=== PATIENT | male | born 1970 | race Caucasian/White ===

== ENCOUNTER 2016-12-25 19:52 | Inpatient (IN) | payer MEDICAID ==
[~2016-12-25] VITALS: Ht 162.6 cm; Wt 119.4 kg
[~2016-12-25 19:52] MED LIST: ALPR0.25 PO; CEPH-443 PO; IBUP-1542 PO
[2016-12-25] MEDS ORDERED: SOD CHLORIDE 0.9% 1,000 ML IV STA (21:37)
[2016-12-25] MEDS ORDERED: ONDANSETRON 4 MG INJ IV STA (21:37)
[2016-12-25 21:53] LABS: BASOPHILS % 0.1 % (0.0-2.0); EOSINOPHILS # 0.1 10^3/ul (0.0-0.5); EOSINOPHILS % 0.4 % (0.0-7.0); HEMATOCRIT 48.4 % (42.0-52.0); LYMPHOCYTES # 1.2 10^3/ul (0.8-2.9); LYMPHOCYTES % 8.3 % (15.0-51.0); MEAN CORPUSCULAR HGB CONC 33.1 g/dl (32.0-37.0); MEAN CORPUSCULAR VOLUME 81.8 fl (82.0-101.0); MONOCYTE # 0.9 10^3/ul (0.3-0.9); MONOCYTES % 6.2 % (0.0-11.0); NEUTROPHILS % 84.5 % (39.0-77.0); PLATELET COUNT 273 10^3/UL (140-415); RED BLOOD COUNT 5.92 10^6/ul (4.70-6.10); WHITE BLOOD COUNT 14.7 10^3/ul (4.8-10.8)
[2016-12-25 22:02] LABS: CALCIUM 9.8 mg/dl (8.4-10.2); CREATININE 2.24 mg/dl (0.61-1.24); POTASSIUM 3.2 mmol/L (3.5-5.1)
[2016-12-25] MEDS ORDERED: ACETAMINOPHEN 500 MG TAB PO STA (22:06)
[2016-12-25] MEDS ORDERED: KETOROLAC 30 MG INJ IV STA (22:06)
[2016-12-25 22:14] LABS: TROPONIN-I 0.086 ng/ml (0.00-0.12)
--- NOTE | 2016-12-25 22:52 | RADRPT ---
PROCEDURE: Portable chest x-ray. CLINICAL INDICATION: 46-year of age, male. Syncope. TECHNIQUE: Portable AP view of the chest. COMPARISON: None available. FINDINGS: Cardiomediastinal contours are normal. Lungs are clear. Negative for pleural effusion or pneumothorax. No acute bony abnormality. IMPRESSION: Negative for evidence of acute chest process. RPTAT: HCTS Physician Talat Date Time Electronically viewed and signed by Jing Ventura Physician on 12/25/2016 22:52 CS/
[2016-12-25] MEDS ORDERED: LORAZEPAM 2 MG INJ IV ONE (23:30)
[2016-12-26] VITALS (14 sets, daily range): BP systolic 80–122; BP diastolic 45–74; PULSE 89–117; RESP 15–18; TEMP 100.3; Ht 162.6 cm; Wt 119.4 kg
--- NOTE | 2016-12-26 00:02 | ERA ---
ER Documentation Chief Complaint Date/Time DATE: 12/25/16 TIME: 23:54 Chief Complaint Dizziness and Not feeling good. Claimed Low BP with hx of Anxiety on Xanax HPI This is a 46-year-old male with a past medical history of hypertension and anxiety who is presenting with fever, chills, nausea, vomiting, diarrhea for 3 days along with lightheadedness, dizziness and presyncope today. The patient reports excellently doubling up on his blood pressure medicine over the last couple days, and thought that that might be why he was not feeling well. The patient denies any headache or vision changes. He denies any chest pain or trouble breathing. He denies a cough. He has not been around any sick contacts. The patient has not had any congestion. He denies any abdominal pain at this time. He has not had any focal deficits. He does not endorse any trouble with urination. ROS All systems reviewed and are negative except as per history of present illness. Medications Home Meds Active Scripts Ibuprofen* (Motrin*) 600 Mg Tab, 600 MG PO Q6H Y for PAIN AND OR ELEVATED TEMP, #30 TAB Prov:PEACE HINKLE NP 06/17/15 Cephalexin* (Keflex*) 500 Mg Capsule, 500 MG PO QID for 5 Days, CAP Prov:PEACE HINKLE [employer] 06/17/15 Reported Medications Alprazolam* (Xanax*) Unknown Strength Tablet, PO TID, TAB 06/17/15 Allergies Allergies: Coded Allergies: No Known Allergy (Unverified , 06/17/15) PMhx/Soc Medical and Surgical Hx: pt denies Surgical Hx History of Surgery: No Anesthesia Reaction: No Hx Neurological Disorder: No Hx Respiratory Disorders: No Hx Cardiac Disorders: Yes (HTN) Hx Psychiatric Problems: Yes (ANXIETY) Hx Miscellaneous Medical Probl: No Hx Alcohol Use: Yes (2-3 beers/ day) Hx Substance Use: Yes (meth heroin, 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 Neck: Full range of motion..~ No meningismus. Resp: Clear to auscultation bilaterally Cardio: Regular rate and rhythm, no murmurs Abd: Soft, non tender, non distended. Normal bowel sounds Skin: No petechiae or rashes Back: No midline or flank tenderness Ext: No cyanosis, or edema Neur: Awake and alert Psych: Normal Mood and Affect Result Diagram: 12/25/16204912/25/162049 Results 24 hrs Laboratory Tests Test 12/25/16 20:50 White Blood Count 14.710^3/ul Red Blood Count 5.9210^6/ul Hemoglobin 16.0g/dl Hematocrit 48.4% Mean Corpuscular Volume 81.8fl Mean Corpuscular Hemoglobin 27.0pg Mean Corpuscular Hemoglobin Concent 33.1g/dl Red Cell Distribution Width 14.0% Platelet Count 28579^3/UL Mean Platelet Volume 10.0fl Neutrophils % 84.5% Lymphocytes % 8.3% Monocytes % 6.2% Eosinophils % 0.4% Basophils % 0.1% Nucleated Red Blood Cells % 0.0/100WBC Neutrophils # (Manual) 12.410^3/ul Lymphocytes # 1.210^3/ul Monocytes # 0.910^3/ul Eosinophils # 0.110^3/ul Basophils # 0.010^3/ul Nucleated Red Blood Cells # 0.010^3/ul Sodium Level 132mmol/L Potassium Level 3.2mmol/L Chloride Level 84mmol/L Carbon Dioxide Level 28mmol/L Anion Gap 23 Blood Urea Nitrogen 37mg/dl Creatinine 2.24mg/dl Glucose Level 122mg/dl Calcium Level 9.8mg/dl Troponin I 0.086ng/ml Current Medications Medications (Trade) Dose Ordered Sig/Va Route PRN Reason Start Time Stop Time Status Last Admin Dose Admin Sodium Chloride (NS) 1,000 ml @ 1,000 mls/hr Q1H STAT IV 12/25/16 21:37 12/25/16 22:36 DC 12/25/16 21:43 Ondansetron HCl (Zofran Inj) 4 mg ONCE STAT IV 12/25/16 21:37 12/25/16 21:39 DC 12/25/16 21:43 Acetaminophen (Tylenol Tab) 1,000 mg ONCE STAT PO 12/25/16 22:06 12/25/16 22:09 DC 12/25/16 22:20 Ketorolac Tromethamine (Toradol) 30 mg ONCE STAT IV 12/25/16 22:06 12/25/16 22:09 DC 12/25/16 22:20 Lorazepam (Ativan) 0.5 mg ONCE ONCE IV 12/25/16 23:30 12/25/16 23:31 DC 12/25/16 23:13 Procedures/MDM The patient's presenting with signs concerning for an infection. The patient does endorse nausea, vomiting and diarrhea. There could be a gastrointestinal etiology. He initially arrived tachycardic and mildly hypotensive. He has been given IV fluids in the emergency department with significant improvement of both of these vital signs. He also had an elevated temperature as high as 103. He was given Tylenol and Toradol with resolution of this as well. Patient's blood work was obtained and reviewed. The patient has mild leukocytosis, which is concerning for an infection. The urinalysis and blood culture have been sent off. The patient's CMP demonstrated an elevated creatinine at 2.2. The patient does not endorse a history of kidney disease, and I am concerned of an acute kidney injury. The patient does have mild hypo- kalemia that does not need to be emergently treated. At this time, I do not have findings that are concerning for a bacterial etiology. This may be further evaluated by culture data in the hospital. The patient will be admitted to the hospital for further evaluation and management. Departure Diagnosis: Primary Impression: SIRS (systemic inflammatory response syndrome) Additional Impressions: Fever Qualified Code: R50.9 - Fever, unspecified fever cause Lightheadedness DIANE (acute kidney injury) MARIA LUISA FARMER MD Dec 26, 2016 00:02
[2016-12-26 00:20] LABS: ADD UMIC YES; UR ASCORBIC ACID NEGATIVE (NEGATIVE); UR BACTERIA FEW /HPF (NONE SEEN); UR BILIRUBIN (Dip) NEGATIVE (NEGATIVE); UR BLOOD (Dip) 1+ mg/dL (NEGATIVE); UR CLARITY CLEAR (CLEAR); UR COLOR STRAW (YELLOW); UR GLUCOSE (Dip) NEGATIVE (NEGATIVE); UR KETONES (Dip) NEGATIVE (NEGATIVE); UR LEUKOCYTE ESTERASE (Dip) 1+ Leu/ul (NEGATIVE); UR NITRITE (Dip) NEGATIVE (NEGATIVE); UR RBC 1 /HPF (0-5); UR SPECIFIC GRAVITY (Dip) 1.004 (1.003-1.030); UR TOTAL PROTEIN (Dip) NEGATIVE (NEGATIVE); UR UROBILINOGEN (Dip) NEGATIVE (NEGATIVE)
[2016-12-26] MEDS ORDERED: AZIL1TAB2 PO (01:12)
[2016-12-26] MEDS ORDERED: ONDANSETRON 4 MG INJ IV PRN ×2 (01:30)
[2016-12-26] MEDS ORDERED: LORAZEPAM 2 MG INJ IV PRN (01:30)
[2016-12-26] MEDS ORDERED: hydrALAzine 20 MG INJ IV PRN (01:30)
[2016-12-26] MEDS ORDERED: ACETAMINOPHEN 325 MG TAB PO PRN ×2 (01:30)
[2016-12-26] MEDS ORDERED: SOD CHLORIDE 0.9% 1,000 ML IV SCH (01:30)
[2016-12-26] MEDS ORDERED: POTASSIUM CHLORIDE 250 ML IVPB ONE (02:00)
[2016-12-26] MEDS: CEFTRIAXONE 1 GM/50 ML (PMX) 50 ML IVPB SCH (02:59)
[2016-12-26 03:31] LABS: ALBUMIN 4.1 g/dl (3.3-4.9); BILIRUBIN,INDIRECT 0.4 mg/dl (0-1.1); BILIRUBIN,TOTAL 0.4 mg/dl (0.2-1.3); MAGNESIUM 1.9 mg/dl (1.7-2.5); PHOSPHORUS 5.2 mg/dl (2.5-4.9); TOTAL PROTEIN 7.5 g/dl (6.1-8.1)
[2016-12-26 03:41] LABS: TROPONIN-I 0.1 ng/ml (0.00-0.12)
[2016-12-26 03:47] LABS: CK-MB 2.66 ng/ml (0.0-2.4)
[2016-12-26] MEDS ORDERED: METOPROLOL 25 MG TAB PO SCH (09:00)
[2016-12-26 09:29] LABS: TROPONIN-I 0.067 ng/ml (0.00-0.12)
[2016-12-26 09:32] LABS: CK-MB 1.52 ng/ml (0.0-2.4)
[2016-12-26 10:37] LABS: CALCIUM 8.4 mg/dl (8.4-10.2); CREATININE 1.72 mg/dl (0.61-1.24); POTASSIUM 3.8 mmol/L (3.5-5.1)
[2016-12-26 10:44] LABS: TROPONIN-I 0.07 ng/ml (0.00-0.12)
--- NOTE | 2016-12-26 10:50 | RADRPT ---
PROCEDURE: Renal US. CLINICAL INDICATION: Acute kidney injury. TECHNIQUE: Multiple sonographic images of the kidneys and urinary bladder were obtained. The imag es were reviewed on a PACS workstation. COMPARISON: No prior studies are available for comparison. FINDINGS: The right kidney measures 12.5 x 5.3 x 6.7 cm. The left kidney measures 12.8 x 6.2 x 5.8 cm. There is no solid renal mass. There are small benign right renal cysts with the largest measuring 1 .6 cm. There is no hydronephrosis. There is no right renal calculus. There is a 0.6 cm calculus in the upper to mid left kidney. Renal parenchymal thickness is normal bilaterally. Echogenicity is normal bilaterally. The perirenal regions are normal with no fluid collection or mass. The urinary bladder is unremarkable. IMPRESSION: 1. Benign right renal cysts with the largest measuring 1.6 cm. 2. Nonobstructing 0.6 cm calculus in the upper to mid left kidney. 3. Otherwise normal renal ultrasound. RPTAT: QQ .Dagoberto Kirkpatrick MD, Date Time Electronically viewed and signed by .Dagoberto Kirkpatrick MD, MD on 12/26/2016 10:49 .R/
[2016-12-26 10:56] LABS: CK-MB 0.93 ng/ml (0.0-2.4)
[2016-12-26 11:03] LABS: BENZODIAZEPINES Negative (NEGATIVE)
[2016-12-26 11:04] LABS: BARBITURATES Negative (NEGATIVE); CANNABINOIDS Negative (NEGATIVE); COCAINE Negative (NEGATIVE); OPIATES Negative (NEGATIVE)
--- NOTE | 2016-12-26 11:53 | HP ---
DATE OF ADMISSION: 12/25/2016 CHIEF COMPLAINT: Fever, chills, nausea and vomiting for the last 3 days. HISTORY OF PRESENT ILLNESS: A 46-year-old male with a past medical history of hypertension and heavy alcohol use who came to the emergency room because of fever. The patient also notes a history of anxiety and says he takes Xanax twice a day every day. He says he has also been having some diarrhea, denies chest pain, denies cough. Denies dysuria or hematuria. Denies multiple sexual partners, denies joint pain or swelling. Denies focal neurologic deficits. The patient was recently started on a drug for high blood pressure and the patient states he has been doubling up on it unknowingly. He also has a history of substance abuse including meth and heroin and that he quit last year. REVIEW OF SYSTEMS: A 12-point review of systems was reviewed and negative. PAST MEDICAL HISTORY: Hypertension and heavy alcohol use. PAST SURGICAL HISTORY: None. ALLERGIES: THE PATIENT HAS NO KNOWN DRUG ALLERGIES. FAMILY HISTORY: Positive for coronary artery disease in his father. MEDICATIONS: Include a drug called Edarbyclor which is a combination of an ANDREW as well as a thiazide diuretic, which he said he was taking twice a day. Two Xanax b.i.d. PHYSICAL EXAMINATION: VITAL SIGNS: Temperature maximum 103.1, heart rate ranges between 86 and 114, respirations between 16 and 27, blood pressure 93/52, saturation 96 percent on room air. GENERAL: The patient looks alert and oriented. In no distress currently. He is not overtly acutely ill-looking, is well built. HEENT: Head normocephalic. Pupils are equal, round, reactive. His mucous membranes are moist. Posterior pharynx clear of erythema or exudate. NECK: Supple. CHEST: Clear to auscultation with good air entry on both sides. CARDIOVASCULAR: Mild tachycardia without murmurs. ABDOMEN: Soft, nontender, nondistended. Normoactive bowel sounds. EXTREMITIES: Patient has no lower extremity edema. SKIN: Without rash or jaundice. LAB VALUES: He had diffusely abnormal labs with a potassium of 3.2, sodium of 132, chloride of 84 which were all low, and anion gap of 23, a BUN of 32, a creatinine of 2.2 which are all high. Lactic acid level was also elevated at 2.6. Hemoglobin A1c was normal. Creatine kinase ended up coming back at 974 consistent with a mild rhabdomyolysis and the CK-MB is also mildly elevated. Troponin even though is negative is trending in the upward direction. He has a leukocytosis of 14,000 with low MCV, MCH and neutrophil predominance. His EKG was nonischemic and a chest x- ray was negative for any acute abnormalities. ASSESSMENT: A 46-year-old male, who presents with flu-like symptoms including fever, chills, nausea, vomiting, managed for the followin. Sepsis. The patient may have a urinary tract infection from a urinalysis that showed 20 white blood cells and a few bacteria, but this is not overly suggestive and he has no symptoms. 2. Acute kidney injury, likely secondary to medication overuse. Baseline creatinine not known. 3. Lactic acidosis secondary to number 1. 4. Mild rhabdomyolysis. 5. Elevated creatine kinase, likely secondary to rhabdomyolysis. 6. Electrolyte abnormalities with hypokalemia and hyponatremia, likely secondary to heavy alcohol use. 7. Heavy alcohol use. 8. Recent heavy tobacco and substance abuse which the patient has now quit by report. PLAN: At this time the patient is admitted to the telemetry floor for close monitoring and management, the main thing is to send for blood cultures and urine cultures and try to figure out where the infection source is. In the meantime will closely monitor his renal function, I will also throw in a renal ultrasound and see if we can figure out why his renal function is elevated even though this could be secondary to sepsis as well. I will provide supportive care with diuretics and pain medication. Further interventions will depend on his clinical course. This plan of care has been reviewed with him. He has been counseled for more than 3 minutes on the need to quit alcohol use and he should continue to stay away from tobacco as well as illicit drugs. Social service consult to be obtained to assist in providing resources. PROPHYLAXIS: He will be on SCDs. Dictated By: Jah Angel MD /[email or web address]/kanu /Document#: [id number]
--- NOTE | 2016-12-26 13:45 | PN ---
Date/Time of Note Date/Time of Note DATE: 12/26/16 TIME: 13:44 Assessment/Plan VTE Prophylaxis VTE Prophylaxis Intervention: SCD's Lines/Catheters IV Catheter Type (from Nrs): Peripheral IV Assessment/Plan Assessment/Plan 46 yo M presented with fevers, tachycardia, leukocytosis consistent with SIRS. No clear infectious source has yet been identified. Consider viral etio? Labs also notable for rhabdomyolysis. PLAN cont empiric abx, cultures in process increase IVFs DVT prophx Subjective 24 Hr Interval Summary Free Text/Dictation Pt sleeping this afternoon Exam/Review of Systems Vital Signs Vitals Vital Signs Date Time Temp Pulse Resp B/P Pulse Ox O2 Delivery O2 Flow Rate FiO2 12/26/16 12:50 99.0 90 18 100/49 98 12/26/16 00:34 Room Air Intake and Output 12/25/16 12/25/16 12/26/16 15:00 23:00 07:00 Intake Total 310.5 ml Balance 310.5 ml Exam sleeping no gross abd distension resp unlabored no rashes no edema labs reviewed, CK a little high Results Result Diagram: 12/25/16204912/26/16 0950 Results 24 hrs Laboratory Tests Test 12/25/16 20:50 12/25/16 23:00 12/26/16 02:20 12/26/16 06:00 White Blood Count 14.7 H Red Blood Count 5.92 Hemoglobin 16.0 Hematocrit 48.4 Mean Corpuscular Volume 81.8 L Mean Corpuscular Hemoglobin 27.0 L Mean Corpuscular Hemoglobin Concent 33.1 Red Cell Distribution Width 14.0 Platelet Count 273 Mean Platelet Volume 10.0 Neutrophils % 84.5 H Lymphocytes % 8.3 L Monocytes % 6.2 Eosinophils % 0.4 Basophils % 0.1 Nucleated Red Blood Cells % 0.0 Neutrophils # (Manual) 12.4 H Lymphocytes # 1.2 Monocytes # 0.9 Eosinophils # 0.1 Basophils # 0.0 Nucleated Red Blood Cells # 0.0 Sodium Level 132 L Potassium Level 3.2 L Chloride Level 84 L Carbon Dioxide Level 28 Anion Gap 23 H Blood Urea Nitrogen 37 H Creatinine 2.24 H Glucose Level 122 Calcium Level 9.8 Troponin I 0.086 0.100 Urine Color STRAW Urine Clarity CLEAR Urine pH 6.0 Urine Specific [place] 1.004 Urine Ketones NEGATIVE Urine Nitrite NEGATIVE Urine Bilirubin NEGATIVE Urine Urobilinogen NEGATIVE Urine Leukocyte Esterase 1+ H Urine Microscopic RBC 1 Urine Microscopic WBC 20 H Urine Bacteria FEW A Urine Hemoglobin 1+ H Urine Glucose NEGATIVE Urine Total Protein NEGATIVE Hemoglobin A1c 5.9 Lactic Acid Level 2.6 *H Phosphorus Level 5.2 H Magnesium Level 1.9 Total Bilirubin 0.4 Direct Bilirubin 0.00 Indirect Bilirubin 0.4 Aspartate Amino Transf (AST/SGOT) 41 Alanine Aminotransferase (ALT/SGPT) 40 Alkaline Phosphatase 59 Creatine Kinase 974 H Creatine Kinase Index 0.3 Creatinine Kinase MB (Mass) 2.66 H Total Protein 7.5 Albumin 4.1 Lipase 70 Urine Opiates Screen Negative Urine Barbiturates Negative Urine Amphetamines Screen Negative Urine Benzodiazepines Screen Negative Urine Cocaine Screen Negative Urine Cannabinoids Negative Test 12/26/16 06:50 12/26/16 09:50 Creatine Kinase 780 H 680 H Creatine Kinase Index 0.2 0.1 Creatinine Kinase MB (Mass) 1.52 0.93 Troponin I 0.067 0.070 Sodium Level 134 L Potassium Level 3.8 Chloride Level 95 #L Carbon Dioxide Level 24 Anion Gap 19 H Blood Urea Nitrogen 30 H Creatinine 1.72 H Glucose Level 112 Lactic Acid Level 1.5 Calcium Level 8.4 Medications Medications Current Medications Sodium Chloride 1,000 ml @ 125 mls/hr Q8H IV Last administered on 12/26/16 02 :25; Admin Dose 125 MLS/HR; Start 12/26/16 at 01:30 Ceftriaxone Sodium (Rocephin) 50 ml @ 100 mls/hr Q24H IVPB Last administered on 12/26/16 02:59; Admin Dose 100 MLS/HR; Start 12/26/16 at 01:30 Metoprolol Tartrate (Lopressor) 25 mg BID PO Last administered on 12/26/16 09: 50; Admin Dose 25 MG; Start 12/26/16 at 09:00 Ondansetron HCl (Zofran Inj) 4 mg Q6H PRN IV NAUSEA AND/OR VOMITING Last administered on 12/26/16 08:32; Admin Dose 4 MG; Start 12/26/16 at 01:30 Lorazepam (Ativan) 1 mg Q6H PRN IV anxiety; Start 12/26/16 at 01:30 SWAPNA WALLER MD Dec 26, 2016 13:45
[2016-12-26] MEDS ORDERED: SOD CHLORIDE 0.9% 1,000 ML IV ONE (15:30)
[2016-12-26] MEDS: SOD CHLORIDE 0.9% 1,000 ML IV SCH ×2 (18:54→23:30)
[2016-12-26] MEDS: ACETAMINOPHEN 325 MG TAB PO PRN (21:12)
[2016-12-27] VITALS (12 sets, daily range): BP systolic 89–130; BP diastolic 42–70; PULSE 74–108; RESP 16–20
[2016-12-27] MEDS: CEFTRIAXONE 1 GM/50 ML (PMX) 50 ML IVPB SCH (01:53)
[2016-12-27] MEDS: SOD CHLORIDE 0.9% 1,000 ML IV SCH ×4 (01:54→21:31)
[2016-12-27] MEDS: ACETAMINOPHEN 325 MG TAB PO PRN ×3 (04:15→20:53)
[2016-12-27 07:31] LABS: BASOPHILS % 0.1 % (0.0-2.0); HEMATOCRIT 39.9 % (42.0-52.0); HEMOGLOBIN 12.9 g/dl (14.0-18.0); LYMPHOCYTES # 1.2 10^3/ul (0.8-2.9); LYMPHOCYTES % 7.5 % (15.0-51.0); MEAN CORPUSCULAR HEMOGLOBIN 26.8 pg (29.0-33.0); MEAN CORPUSCULAR HGB CONC 32.3 g/dl (32.0-37.0); MEAN CORPUSCULAR VOLUME 82.8 fl (82.0-101.0); MEAN PLATELET VOLUME 10.2 fl (7.4-10.4); MONOCYTE # 1.4 10^3/ul (0.3-0.9); MONOCYTES % 8.6 % (0.0-11.0); NEUTROPHILS % 83.2 % (39.0-77.0); PLATELET COUNT 180 10^3/UL (140-415); POSITIVE DIFF @See below; RED BLOOD COUNT 4.82 10^6/ul (4.70-6.10); RED CELL DISTRIBUTION WIDTH 14.6 % (11.5-14.5); WHITE BLOOD COUNT 15.9 10^3/ul (4.8-10.8)
[2016-12-27 07:54] LABS: CALCIUM 8.4 mg/dl (8.4-10.2); CREATININE 1.39 mg/dl (0.61-1.24); POTASSIUM 3.9 mmol/L (3.5-5.1)
--- NOTE | 2016-12-27 10:08 | PN ---
Date/Time of Note Date/Time of Note DATE: 12/27/16 TIME: 10:08 Assessment/Plan VTE Prophylaxis VTE Prophylaxis Intervention: SCD's Lines/Catheters IV [facility] Type (from [facility]): Peripheral IV Assessment/Plan Chief Complaint/Hosp Course 1.Systemic inflammatory response syndrome vs possible Sepsis? -Continue current antibiotics. -Follow-up final cultures and C. difficile studies. 2.Diarrhea. Rule out C. difficile.Improving. -Follow-up pending C. difficile studies. 3.Rhabdomyolysis likely secondary to EtOH. Improving. 4.Lactic acidosis, likely EtOH induced versus actual infection. Resolved 5.Acute kidney injury, likely hemodynamics/ARB/substance-induced .Renal function Stabilizing.Renal ultrasound with normal echogenicity bilaterally. -Avoid nephrotoxins and monitor renal function closely. 6.Hyponatremia,Likely Thiazide induced. Resolved 7. History of Hypertension. -Home medications (ARB/Thiazide) were discontinued as patient came in with DIANE. -Monitor blood pressure closely as it appears borderline low. Will consider switching to another antihypertensive if indicated. 8. EtOH abuse. -Cessation advised. Plan: Continue current medical management. Follow-up with C. difficile studies. Monitor renal function closely. Case discussed with . Problems: Subjective 24 Hr Interval Summary Free Text/Dictation Patient with complaining of diarrhea. Having mild low-grade fevers. Exam/Review of Systems Vital Signs Vitals Vital Signs Date Time Temp Pulse Resp B/P Pulse Ox O2 Delivery O2 Flow Rate FiO2 12/27/16 08:36 74 12/27/16 08:01 98.6 18 130/70 100 12/26/16 00:34 Room Air Intake and Output 12/26/16 12/26/16 12/27/16 15:00 23:00 07:00 Intake Total 462.5 ml 3300 ml 1537 ml Output Total 1200 ml 4750 ml 2900 ml Balance -737.5 ml -1450 ml -1363 ml Exam General: Well developed,adequately built, not in any acute distress . HEENT: Normocephalic, Atraumatic, No laceration or hematoma; Eyes: PEERL, Conjunctiva clear, Anicteric sclera Neck: Supple without any lymphadenopathy, nontender, no JVD, no carotid bruits, trachea midline, no thyromegaly Cardiac: S1, S2 auscultated, regular rhythm and rate, no mumurs or gallop Pulmonary: Normal respiratory effort. Chest clear to auscultation bilaterally, no adventitious breath sounds GI: Abdomen normal to inspection. Soft, non tender, non- distended, no masses, no rebound tenderness or guarding. Bowel sounds active on all four quadrants Genitourinary: Deferred Extremities: No cyanosis, clubbing, or edema. Pulses [2+] bilaterally. Full ROM on all four extremities. No focal weakness appreciated. Neurologic: Alert to person, place, time, and situation. Affect appropriate, intact sensation. Skin: Clean,dry, and intact. No ecchymosis, no rashes, or lesions Results Result Diagram: 12/27/16 0659 12/27/16 0659 Results 24 hrs Laboratory Tests Test 12/27/16 06:59 White Blood Count 15.9 H Red Blood Count 4.82 Hemoglobin 12.9 L Hematocrit 39.9 L Mean Corpuscular Volume 82.8 Mean Corpuscular Hemoglobin 26.8 L Mean Corpuscular Hemoglobin Concent 32.3 Red Cell Distribution Width 14.6 H Platelet Count 180 # Mean Platelet Volume 10.2 Neutrophils % 83.2 H Lymphocytes % 7.5 L Monocytes % 8.6 Eosinophils % 0.0 Basophils % 0.1 Nucleated Red Blood Cells % 0.0 Neutrophils # (Manual) 13.2 H Lymphocytes # 1.2 Monocytes # 1.4 H Eosinophils # 0.0 Basophils # 0.0 Nucleated Red Blood Cells # 0.0 Sodium Level 140 Potassium Level 3.9 Chloride Level 98 Carbon Dioxide Level 27 Anion Gap 19 H Blood Urea Nitrogen 19 # Creatinine 1.39 H Glucose Level 110 Calcium Level 8.4 Creatine Kinase 313 #H Medications Medications Current Medications Ceftriaxone Sodium (Rocephin) 50 ml @ 100 mls/hr Q24H IVPB Last administered on 12/27/16 01:53; Admin Dose 100 MLS/HR; Start 12/26/16 at 01:30 Ondansetron HCl 4 mg 4 mg Q6H PRN IV NAUSEA AND/OR VOMITING Last administered on 12/26/16 08:32; Admin Dose 4 MG; Start 12/26/16 at 01:30 Sodium Chloride (NS) 1,000 ml @ 125 mls/hr Q8H IV Last administered on 01:54; Admin Dose 125 MLS/HR; Start 12/26/16 at 15:30 Acetaminophen (Tylenol Tab) 650 mg Q6H PRN PO PAIN AND OR ELEVATED TEMP Last administered on 12/27/16 04:15; Admin Dose 650 MG; Start 12/26/16 at 20:00 ROSCOE LEMUS NP Dec 27, 2016 10:08
[2016-12-27] MEDS: metroNIDAZOLE 500 MG TAB PO SCH ×2 (15:31→21:30)
[2016-12-28] VITALS (12 sets, daily range): BP systolic 87–110; BP diastolic 48–69; PULSE 72–105; RESP 18–21
[2016-12-28] MEDS: CEFTRIAXONE 1 GM/50 ML (PMX) 50 ML IVPB SCH (01:28)
[2016-12-28] MEDS: ACETAMINOPHEN 325 MG TAB PO PRN ×3 (06:28→23:37)
[2016-12-28] MEDS: metroNIDAZOLE 500 MG TAB PO SCH ×3 (06:28→23:35)
[2016-12-28] MEDS: SOD CHLORIDE 0.9% 1,000 ML IV SCH ×3 (06:28→17:01)
[2016-12-28 07:40] LABS: ABNORMAL IP MESSAGE 1; BASOPHILS % 0.3 % (0.0-2.0); EOSINOPHILS % 0.3 % (0.0-7.0); HEMATOCRIT 38.5 % (42.0-52.0); HEMOGLOBIN 12.5 g/dl (14.0-18.0); LYMPHOCYTES # 1.5 10^3/ul (0.8-2.9); LYMPHOCYTES % 12.6 % (15.0-51.0); MEAN CORPUSCULAR HEMOGLOBIN 26.8 pg (29.0-33.0); MEAN CORPUSCULAR HGB CONC 32.5 g/dl (32.0-37.0); MEAN CORPUSCULAR VOLUME 82.6 fl (82.0-101.0); MEAN PLATELET VOLUME 10.2 fl (7.4-10.4); MONOCYTE # 1.5 10^3/ul (0.3-0.9); MONOCYTES % 13.2 % (0.0-11.0); NEUTROPHILS % 73.1 % (39.0-77.0); PLATELET COUNT 192 10^3/UL (140-415); POSITIVE DIFF @See below; RED BLOOD COUNT 4.66 10^6/ul (4.70-6.10); RED CELL DISTRIBUTION WIDTH 14.2 % (11.5-14.5); WHITE BLOOD COUNT 11.5 10^3/ul (4.8-10.8)
[2016-12-28 08:04] LABS: CALCIUM 8.6 mg/dl (8.4-10.2); CREATININE 1.11 mg/dl (0.61-1.24); POTASSIUM 3.3 mmol/L (3.5-5.1)
--- NOTE | 2016-12-28 11:18 | PN ---
Date/Time of Note Date/Time of Note DATE: 12/28/16 TIME: 11:18 Assessment/Plan VTE Prophylaxis VTE Prophylaxis Intervention: SCD's Lines/Catheters IV Catheter Type (from Nrs): Peripheral IV Assessment/Plan Chief Complaint/Hosp Course 1.Sepsis 2/2 UTI, C-diff diarrhea. Resolving. -Continue current antibiotics. -Follow-up final cultures and C. difficile studies. 2.C-diff Diarrhea. .Improving. -On Flagyl 3.Gram negative UTI. -Continue abx.F/u final CS. 4.Rhabdomyolysis likely secondary to EtOH. Improved. 5.Lactic acidosis, likely EtOH induced versus actual infection. Resolved 6.Acute kidney injury, likely hemodynamics/ARB/substance-induced .Renal ultrasound with normal echogenicity bilaterally. Resolved. -Avoid nephrotoxins and monitor renal function closely. 7.Hyponatremia,Likely Thiazide induced. Resolved 8. History of Hypertension. -Home medications (ARB/Thiazide) were discontinued as patient came in with DIANE. -Monitor blood pressure closely as it appears borderline low. Will consider switching to another antihypertensive if indicated. 9. EtOH abuse. -Cessation advised. 10.Hypokalemia. Replete and monitor. Plan: Overall with improvement. Transfer to med-surg level of care. Continue current medical management. Follow-up with final UCS. If no further fevers,DC planning in AM on abx. Case discussed with . Problems: Subjective 24 Hr Interval Summary Free Text/Dictation No further fevers overnight. Denies dysuria. Having lower abdominal pain-mild. Exam/Review of Systems Vital Signs Vitals Vital Signs Date Time Temp Pulse Resp B/P Pulse Ox O2 Delivery O2 Flow Rate FiO2 12/28/16 08:50 99.4 72 18 91/50 95 Room Air Intake and Output 12/27/16 12/27/16 12/28/16 15:00 23:00 07:00 Intake Total 563 ml 1500 ml 2000 ml Output Total 950 ml 1600 ml 2400 ml Balance -387 ml -100 ml -400 ml Exam General: Well developed,adequately built, not in any acute distress . HEENT: Normocephalic, Atraumatic, No laceration or hematoma; Eyes: PEERL, Conjunctiva clear, Anicteric sclera Neck: Supple without any lymphadenopathy, nontender, no JVD, no carotid bruits, trachea midline, no thyromegaly Cardiac: S1, S2 auscultated, regular rhythm and rate, no mumurs or gallop Pulmonary: Normal respiratory effort. Chest clear to auscultation bilaterally, no adventitious breath sounds GI: Mild tenderness to suprapubic area. No dysuria or hematuria. Abdomen normal to inspection. Soft, non tender, non- distended, no masses, no rebound tenderness or guarding. Bowel sounds active on all four quadrants Genitourinary: Deferred Extremities: No cyanosis, clubbing, or edema. Pulses [2+] bilaterally. Full ROM on all four extremities. No focal weakness appreciated. Neurologic: Alert to person, place, time, and situation. Affect appropriate, intact sensation. Skin: Clean,dry, and intact. No ecchymosis, no rashes, or lesions Results Result Diagram: 12/28/16 0659 12/28/16 0659 Results 24 hrs Laboratory Tests Test 12/28/16 06:59 White Blood Count 11.5 #H Red Blood Count 4.66 L Hemoglobin 12.5 L Hematocrit 38.5 L Mean Corpuscular Volume 82.6 Mean Corpuscular Hemoglobin 26.8 L Mean Corpuscular Hemoglobin Concent 32.5 Red Cell Distribution Width 14.2 Platelet Count 192 Mean Platelet Volume 10.2 Neutrophils % 73.1 Lymphocytes % 12.6 L Monocytes % 13.2 H Eosinophils % 0.3 Basophils % 0.3 Nucleated Red Blood Cells % 0.0 Neutrophils # (Manual) 8.4 H Lymphocytes # 1.5 Monocytes # 1.5 H Eosinophils # 0.0 Basophils # 0.0 Nucleated Red Blood Cells # 0.0 Sodium Level 137 Potassium Level 3.3 L Chloride Level 95 L Carbon Dioxide Level 26 Anion Gap 19 H Blood Urea Nitrogen 12 Creatinine 1.11 Glucose Level 113 Calcium Level 8.6 Medications Medications Current Medications Ceftriaxone Sodium (Rocephin) 50 ml @ 100 mls/hr Q24H IVPB Last administered on 12/28/16 01:28; Admin Dose 100 MLS/HR; Start 12/26/16 at 01:30 Ondansetron HCl 4 mg 4 mg Q6H PRN IV NAUSEA AND/OR VOMITING Last administered on 12/26/16 08:32; Admin Dose 4 MG; Start 12/26/16 at 01:30 Sodium Chloride (NS) 1,000 ml @ 125 mls/hr Q8H IV Last administered on 06:28; Admin Dose 125 MLS/HR; Start 12/26/16 at 15:30 Acetaminophen (Tylenol Tab) 650 mg Q6H PRN PO PAIN AND OR ELEVATED TEMP Last administered on 12/28/16 06:28; Admin Dose 650 MG; Start 12/26/16 at 20:00 Metronidazole (Flagyl) 500 mg Q8 PO Last administered on 12/28/16 06:28; Admin Dose 500 MG; Start 12/27/16 at 15:00 ROSCOE LEMUS NP Dec 28, 2016 11:18
[2016-12-28] MEDS ORDERED: POTASSIUM CHLORIDE (SR) 20 MEQ TAB PO STA (11:49)
[2016-12-29] MEDS: CEFTRIAXONE 1 GM/50 ML (PMX) 50 ML IVPB SCH (00:37)
[2016-12-29 02:16] VITALS: BP 108/65; RESP 17
[2016-12-29] MEDS: SOD CHLORIDE 0.9% 1,000 ML IV SCH (03:35)
[2016-12-29] MEDS: metroNIDAZOLE 500 MG TAB PO SCH ×2 (05:08→13:26)
[2016-12-29 05:45] LABS: ABNORMAL IP MESSAGE 1; BASOPHILS % 0.4 % (0.0-2.0); EOSINOPHILS # 0.1 10^3/ul (0.0-0.5); EOSINOPHILS % 1.2 % (0.0-7.0); HEMATOCRIT 41.5 % (42.0-52.0); HEMOGLOBIN 13.1 g/dl (14.0-18.0); LYMPHOCYTES % 20.2 % (15.0-51.0); MEAN CORPUSCULAR HEMOGLOBIN 26.6 pg (29.0-33.0); MEAN CORPUSCULAR HGB CONC 31.6 g/dl (32.0-37.0); MEAN CORPUSCULAR VOLUME 84.3 fl (82.0-101.0); MEAN PLATELET VOLUME 10.2 fl (7.4-10.4); MONOCYTE # 1.7 10^3/ul (0.3-0.9); MONOCYTES % 17.4 % (0.0-11.0); NEUTROPHILS % 60.1 % (39.0-77.0); PLATELET COUNT 237 10^3/UL (140-415); POSITIVE DIFF @See below; RED BLOOD COUNT 4.92 10^6/ul (4.70-6.10); RED CELL DISTRIBUTION WIDTH 14.7 % (11.5-14.5); WHITE BLOOD COUNT 9.8 10^3/ul (4.8-10.8)
[2016-12-29 06:34] LABS: CALCIUM 9.2 mg/dl (8.4-10.2); CREATININE 1.13 mg/dl (0.61-1.24); POTASSIUM 4.1 mmol/L (3.5-5.1)
[2016-12-29 08:00] VITALS: BP 109/62; RESP 18
[2016-12-29] MEDS: ACETAMINOPHEN 325 MG TAB PO PRN (08:52)
--- NOTE | 2016-12-29 12:50 | PDOCDIS ---
Discharge Instructions CONDITION Patient Condition: Stable HOME CARE INSTRUCTIONS: Special Diet: low fat low choles FOLLOW UP/APPOINTMENTS Follow-up Plan 1.Follow up with primary care physician in 1 week If you don't have one please let someone know, we can give you resources that may help you pick one. You may also call your insurance company to assign one to you. Review your medication list with your nurse before leaving and if you need new prescriptions please let your nurse know. I may have made changes to your home medications or given you new prescriptions, please let your primary doctor know as well. Stay compliant with your medications and report any side effects to your PCP or pharmacist. Return to the ER if you have any concerns and cannot reach your doctors or call your insurance company, they usually have a nurse that can help you. 2. Call 911 or go to the nearest emergency room if experiencing loss of consciousness, dizziness, chest pain, shortness of breath, vomiting/abdominal pain, speech difficulties, motor weakness or any unusual symptoms. OTHER ORDERS: Other Orders: Do not share personal items including utensils, soap, towels and other personal abilities. Hand wash with soap and water for 15 minutes. ROSCOE LEMUS NP Dec 29, 2016 12:50
[2016-12-29] MEDS ORDERED: METR500T PO (12:52)
[2016-12-29] MEDS ORDERED: CIPR500T4 PO (12:52)
[2016-12-29 14:00] VITALS: BP 118/64; RESP 20
--- NOTE | 2016-12-29 15:44 | DS ---
Date/Time of Note Date/Time of Note DATE: 12/29/16 TIME: 15:41 Discharge Summary Admission/Discharge Info Admit Date/Time Dec 25, 2016 at 23:54 Discharge Date/Time Discharge Diagnosis 1. Status post sepsis 2/2 UTI, C-diff diarrhea. 2. C-diff Diarrhea. Resolving 3.Gram negative bacteremia UTI. 4.Rhabdomyolysis likely secondary to EtOH. Improved. 5.Lactic acidosis, likely EtOH induced versus actual infection. Resolved 6.Acute kidney injury, likely hemodynamics/ARB/substance-induced .. Resolved. 7.Hyponatremia,Likely Thiazide induced. Resolved 8. History of Hypertension. Now off treatment. 9. EtOH abuse. 10.Hypokalemia 2/2 diarrhea. Resolved. Patient Condition: Stable Procedures 2016. Renal ultrasound. IMPRESSION: 1. Benign right renal cysts with the largest measuring 1.6 cm. 2. Nonobstructing 0.6 cm calculus in the upper to mid left kidney. 3. Otherwise normal renal ultrasound. Hospital Course This is a 46-year-old male with a past medical history hypertension, alcohol abuse, who presented to the emergency room with complaints of fever. 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 His initial labs with lactic acid 2.6, BUN 32, creatinine 2.2, sodium 132, anion gap 23 and potassium 3.2. Patient also had elevated WBC 14,000. Patient was treated with sepsis protocol and was admitted. He was continued on antibiotics. Patient also noted with acute kidney injury with rhabdomyolysis. Renal ultrasound was not impressive for chronic kidney disease. His blood pressure medications were discontinued as he did not require them and also he had DIANE. Urine culture was positive for Enterobacter aerogenes. He was continued on appropriate antibiotic regimen. Patient also had positive C. difficile. He was started on Flagyl. His diarrhea started to improve. Patient is able to tolerate diet and activities well. Leukocytosis resolved. Sepsis resolved. Patient also was noted with rhabdomyolysis secondary to EtOH abuse which was also improved. Lactic acidosis resolved. Renal function stabilized to baseline. Hyponatremia and hypokalemia also resolved. Patient did not require any further medication for hypertension as his blood pressure remained stable without any intervention. Patient was not recommended to continue his home antihypertensives as they are also kidney toxic. At this time, patient does not need any antihypertensive and can be followed up with primary care provider for evaluation. Patient is feeling back to his baseline. His labs and vital signs remained unremarkable. Patient is medically stable for discharge. Disposition: Patient will be discharged home today with primary care follow-up. He was instructed on prevention of C. difficile infection and precaution. Patient verbalized discharge instructions. Patient was recommended to continue Flagyl and Cipro for another 10 days. Possibility 60 minutes was spent in coordinating the discharge on this patient. Case discussed with [place] Meds Active Scripts Ciprofloxacin Hcl* (Ciprofloxacin Hcl*) 500 Mg Tablet, 500 MG PO BID, #20 TAB Prov:LEMUSROMANAROSCOE V. [employer] M[employer] TECHNICIAN 12/29/16 Metronidazole* (Flagyl*) 500 Mg Tablet, 500 MG PO Q8, #30 TAB Prov:LEMUS,ROSCOE V. [employer] M[employer] TECHNICIAN 12/29/16 Ibuprofen* (Motrin*) 600 Mg Tab, 600 MG PO Q6H Y for PAIN AND OR ELEVATED TEMP, #30 TAB Prov:PEACE HINKLE [employer]AD [employer] M[employer] TECHNICIAN 06/17/15 Reported Medications Alprazolam* (Xanax*) Unknown Strength Tablet, 0.5 MG PO BID Y for ANXIETY, TAB 06/17/15 Discontinued Reported Medications Azilsartan-Chlorthalidone (Edarbyclor) 40-25 Mg Tablet, 1 TAB PO DAILY, TAB 12/26/16 Follow-up Plan HOME CARE INSTRUCTIONS: Special Diet: low fat low choles FOLLOW UP/APPOINTMENTS Follow-up Plan 1.Follow up with primary care physician in 1 week If you don't have one please let someone know, we can give you resources that may help you pick one. You may also call your insurance company to assign one to you. Review your medication list with your nurse before leaving and if you need new prescriptions please let your nurse know. I may have made changes to your home medications or given you new prescriptions, please let your primary doctor know as well. Stay compliant with your medications and report any side effects to your PCP or pharmacist. Return to the ER if you have any concerns and cannot reach your doctors or call your insurance company, they usually have a nurse that can help you. 2. Call 911 or go to the nearest emergency room if experiencing loss of consciousness, dizziness, chest pain, shortness of breath, vomiting/abdominal pain, speech difficulties, motor weakness or any unusual symptoms. OTHER ORDERS: Other Orders: Do not share personal items including utensils, soap, towels and other personal abilities. Hand wash with soap and water for 15 minutes. Primary Care Provider Not On Staff Doctor Pending Labs Laboratory Tests Test 12/29/16 04:39 White Blood Count 9.810^3/ul (4.8-10.8) Red Blood Count 4.9210^6/ul (4.70-6.10) Hemoglobin 13.1g/dl (14.0-18.0) Hematocrit 41.5% (42.0-52.0) Mean Corpuscular Volume 84.3fl (82.0-101.0) Mean Corpuscular Hemoglobin 26.6pg (29.0-33.0) Mean Corpuscular Hemoglobin Concent 31.6g/dl (32.0-37.0) Red Cell Distribution Width 14.7% (11.5-14.5) Platelet Count 90405^3/UL (140-415) Mean Platelet Volume 10.2fl (7.4-10.4) Neutrophils % 60.1% (39.0-77.0) Lymphocytes % 20.2% (15.0-51.0) Monocytes % 17.4% (0.0-11.0) Eosinophils % 1.2% (0.0-7.0) Basophils % 0.4% (0.0-2.0) Nucleated Red Blood Cells % 0.0/100WBC (0.0-0.0) Neutrophils # (Manual) 5.910^3/ul (1.7-7.5) Lymphocytes # 2.010^3/ul (0.8-2.9) Monocytes # 1.710^3/ul (0.3-0.9) Eosinophils # 0.110^3/ul (0.0-0.5) Basophils # 0.010^3/ul (0.0-0.1) Nucleated Red Blood Cells # 0.010^3/ul (0.0-0.0) Sodium Level 142mmol/L (135-144) Potassium Level 4.1mmol/L (3.5-5.1) Chloride Level 96mmol/L (97-110) Carbon Dioxide Level 31mmol/L (21-31) Anion Gap 19 (8-16) Blood Urea Nitrogen 14mg/dl (7-20) Creatinine 1.13mg/dl (0.61-1.24) Glucose Level 102mg/dl (70-220) Calcium Level 9.2mg/dl (8.4-10.2) ROSCOE LEMUS NP Dec 29, 2016 15:44
== END 2016-12-29 15:38 | disposition home or self-care (01) | DRG 872 ==
LOC: E/R 19:52 → MS4 23:54 → PP2 12-28 16:01
PROVIDERS: ADMIT Family Medicine; ATTEND Family Medicine
DX: A41.9 Sepsis, unspecified organism (principal); N17.9 Acute kidney failure, unspecified; E87.2 Acidosis; M62.82 Rhabdomyolysis; N28.1 Cyst of kidney, acquired; E87.1 Hypo-osmolality and hyponatremia; N39.0 Urinary tract infection, site not specified; R65.10 Systemic inflammatory response syndrome (SIRS) of non-infectious origin without acute organ dysfunction; R19.7 Diarrhea, unspecified; E87.6 Hypokalemia; R51 Headache; N20.0 Calculus of kidney; B96.89 Other specified bacterial agents as the cause of diseases classified elsewhere; Z72.89 Other problems related to lifestyle
CPT/HCPCS: 36415; 71010; 76775; 80048; 80076; 80307; 81001; 82550; 82553; 83036; 83605; 83690; 83735; 84100; 84484; 85025; 87040; 87075; 87086; 93005; 96374; 96375; J0696; J1885; J2060; J2405; J3480; J7030